=== PATIENT | female | born 1930 | race Caucasian/White ===

== ENCOUNTER 2020-12-28 11:15 | Emergency (ER) | payer MEDICARE ==
[~2020-12-28] VITALS: Ht 152.4 cm; Wt 80.2 kg
--- NOTE | ~2020-12-28 | EMS ---
[place] [address] EMS Patient Care Report Name: CHACHO LOPEZ Room: [facility]#: [id number] Admission: 12/28/20 Attend Phys: Discharge: Date of : [birth year] Report #: [id number] THIS REPORT FOR: //name// Report Transmitted: 12/28/2020 13:20 EMS Care Summary [facility] Incident [id number] @ 12/28/2020 10:22 Incident Location [address] [place] [address] Patient CHACHO LOPEZ Female, 89 Years 1930 Patient Address [address] [place] [address] Patient History Congestive Heart Failure (CHF),Dementia,Hypertension (HTN),Hyperlipidemia,Urinary Tract Infection (UTI),Type 2 Diabetes,Myocardial Infarction (GA), Patient Allergies No known allergies, Patient Medications Rosuvastatin, Acetaminophen, Namenda, Donepezil, Carvedilol, Losartan, Chief Complaint Chest pain Disposition Transported No Lights/Palms Dispatch Reason Unconscious/Fainting Transported To [facility] Narrative Dispatch: [facility] was dispatched for a female patient who was unconscious and had a complaint of chest pain prior to arrival. Med 1 copied tones [place] [address] EMS Patient Care Report Name: CHACHO LOPEZ Room: [facility]#: [id number] Admission: 12/28/20 Attend Phys: Discharge: Date of : [birth year] Report #: [id number] Chief Complaint: Med 1 arrived on scene to find the patient lying supine in her bed. Patient is alert and does not appear to be in any distress or discomfort. Patient states she has chest pain that radiates down her left leg. 12 lead EKG was performed showing sinus bradycardia with a borderline first degree heart block. History of present illness/LYDIA: Patient was found unconscious by MI staff. Staff called 911 and the patient began to regain consciousness prior to EMS arrival. NH staff states the patient was reporting chest pain prior to going unconscious. Assessment: Airway: Clear, patent, and self maintained. Breathing: Clear, and equal bilaterally. Non labored. Circulation: Skin is pink, warm, and dry. Strong radial pulses. Disability: A&OX2, GCS 15. Exposures: No life threats were found. See "assessments" tab for further. Reason for ambulance: Patient is experiencing chest pain and was found unconscious by MI staff. Requesting EMS treatment and transport to [facility] Treatments: ALS assessment. 12 lead EKG showing sinus bradycardia with borderline first degree heart block. 324mg ASA. 20G IV LAC. Vitals monitored throughout transport. Summary: With the assistance of EMS, the patient was placed onto the cot, secured in place, and placed into the ambulance for transport. The patient was placed onto the monitor and an IV was established. The patient was given 324mg ASA oral. Med 1 went en route non emergent to [facility]. The patient's overall condition improved throughout transport, the patient states she did not have chest pain only left leg pain. Radio report was given with no further questions or orders received. Med 1 arrived at destination and the patient was taken to room 4 in the ED where she was sheet transferred onto the bed. Report was given and signatures and paperwork were received. Med 1 returned back in service. Initial Vitals @10:46P: 58,BP: 128/63, @11:05P: 55,BP: 126/72, @10:30P: 59,BP: 148/82,GCS: 15,Temp: 98.3F,Glucose: 281,SpO2: 97, @10:38BP: 130/70,GCS: 15,SpO2: 100, @11:13P: 57,BP: 127/61,SpO2: 98, Assessments @10:58MENTAL:Confused,Person Oriented,Event Oriented,SKIN:HEENT:Head/Face: [place] [address] EMS Patient Care Report Name: CHACHO LOPEZ Room: [facility]#: [id number] Admission: 12/28/20 Attend Phys: Discharge: Date of : [birth year] Report #: [id number] Other,LUNG SOUNDS:ABDOMEN:PELVIS//GI:EXTREMITIES:Left Leg: Other,Capillary Refill: Right Upper: < 2 Sec,PULSE:Radial: 2+ Normal,NEURO:@11:01MENTAL:Confused,Person Oriented,Event Oriented,SKIN:HEENT:LUNG SOUNDS:ABDOMEN:PELVIS//GI:EXTREMITIES:Left Leg: Other,Capillary Refill: Right Upper: < 2 Sec,PULSE:Radial: 2+ Normal,NEURO: Impression Chest Pain / Discomfort Procedures @10:28ALS AssessmentResponse: UnchangedSucceeded@10:35[place] 0cc (20 ga) Site: Antecubital-LeftResponse: UnchangedSucceeded@10:36Aspirin - 324 Milligrams (mg) - OralResponse: Improved Timeline 10:20,Call Received 10:22,Dispatched 10:22,En Route 10:22,On Scene 10:24,At Patient 10:28,ALS Assessment,Response: UnchangedSucceeded, 10:30,BP: 148/82 M,PULSE: 59,RR: R,SPO2: 97 Ox,ETCO2: ,B,PAIN: ,GCS: 15, 10:35,[place] 0cc 20 ga Site: Antecubital-Left,Response: UnchangedSucceeded, 10:36,Aspirin - 324 Milligrams (mg) - Oral,Response: Improved 10:38,BP: 130/70 M,PULSE: ,RR: R,SPO2: 100 Ox,ETCO2: ,BG: ,PAIN: ,GCS: 15, 10:41,Depart Scene 10:46,BP: 128/63 M,PULSE: 58,RR: R,SPO2: Ox,ETCO2: ,BG: ,PAIN: ,GCS: , 11:05,BP: 126/72 M,PULSE: 55,RR: R,SPO2: Ox,ETCO2: ,BG: ,PAIN: ,GCS: , 11:13,BP: 127/61 M,PULSE: 57,RR: R,SPO2: 98 Ox,ETCO2: ,BG: ,PAIN: ,GCS: , 11:13,At Destination 12:09,Call Closed Disclaimer v1.1 Copyright 2020 [employer] This EMS Care Summary contains data elements from the applicable legal record (which may be displayed differently). It is designed to provide pertinent information for the following purposes: continuity of care, clinical quality, and state data reporting. The complete legal record is available to ED staff and administrators of the receiving hospital in [facility]'s Patient Tracker. All data is provided "as is."
[2020-12-28] MEDS ORDERED: ARICEPT10 M1 PO (11:18)
[2020-12-28] MEDS ORDERED: CARVEDILOL25 MG PO (11:18)
[2020-12-28] MEDS ORDERED: IMDUR 60 MG TAB60 M1 PO (11:19)
[2020-12-28] MEDS ORDERED: CALMOSEPTINE O3.5 GM TOP (11:19)
[2020-12-28] MEDS ORDERED: COZAAR100 MG PO (11:19)
[2020-12-28] MEDS ORDERED: BYDUREON B2 MG/0.85 SUBQ (11:19)
[2020-12-28] MEDS ORDERED: NAMENDA 10 MG T10 MG PO (11:20)
[2020-12-28] MEDS ORDERED: ROSUVASTATIN CA20 MG PO (11:20)
[2020-12-28] MEDS ORDERED: [UNRECOGNIZED DRUG - OTHER] IM (11:21)
[2020-12-28] MEDS ORDERED: LEVEMIR FL100 UNIT/2 SUBQ (11:21)
[2020-12-28] MEDS ORDERED: NYSTATIN 100,0015 G1 TOP (11:22)
[2020-12-28] MEDS ORDERED: ARTHRITIS PAIN650 M3 PO (11:22)
[2020-12-28 11:36] LABS: URINE BILIRUBIN NEGATIVE (Negative); URINE BLOOD NEGATIVE (Negative); URINE CLARITY CLEAR; URINE COLOR YELLOW; URINE GLUCOSE-RANDOM NEGATIVE (Negative); URINE KETONES NEGATIVE (Negative); URINE LEUKOCYTES NEGATIVE (Negative); URINE NITRITE NEGATIVE (Negative); URINE PROTEIN NEGATIVE (Negative); URINE SPECIFIC GRAVITY 1.015 (1.005-1.030); URINE UROBILINOGEN 0.2 E.U./dl (0.2-1.0)
[2020-12-28 11:52] LABS: ABSOLUTE BASOPHILS 0.1 thou/uL (0.0-0.2); ABSOLUTE EOSINOPHILS 0.2 thou/uL (0.0-0.7); ABSOLUTE LYMPHOCYTES 3.5 thou/uL (0.8-5.3); ABSOLUTE MONOCYTES 0.7 thou/uL (0.0-1.2); ABSOLUTE NEUTROPHILS 4.3 thou/uL (1.6-8.1); BASOPHILS 0.9 %; EOSINOPHILS 2.5 %; HEMATOCRIT 39.7 % (37.0-47.0); HEMOGLOBIN 12.9 gm/dL (12.0-15.0); LYMPHOCYTES 39.5 %; MCH 28.6 pg (26.0-34.0); MCHC 32.5 g/dL (28.0-37.0); MCV 87.9 fL (80.0-100.0); MONOCYTES 7.6 %; MPV 8.6 fl. (7.2-11.1); NUCLEATED RBCS 0 /100WBC; PLATELET COUNT* 225 thou/uL (150-400); POLYS 49.5 %; RBC 4.52 mil/uL (4.20-5.00); RDW-CV 14.8 % (10.5-14.5); WBC 8.8 thou/uL (4.0-11.0)
[2020-12-28 12:02] LABS: CALCIUM 9.1 mg/dL (8.5-10.1); CREATININE 1.3 mg/dL (0.6-1.3); POTASSIUM 4.5 mmol/L (3.5-5.1)
[2020-12-28 12:06] LABS: ALBUMIN 3.4 g/dL (3.4-5.0); TOTAL BILIRUBIN 0.7 mg/dL (<0.1-1.0); TOTAL PROTEIN 6.8 g/dL (6.4-8.2)
[2020-12-28 14:44] VITALS: BP 137/47
--- NOTE | 2020-12-29 12:27 | EKG ---
[place] [address] ELECTROCARDIOGRAM REPORT Name: CHACHO LOPEZ Room: [facility]#: [id number] Admission: 12/28/20 Attend Phys: Discharge: 12/28/20 Date of : [birth year] Date of Service: 12/28/20 1120 Report #: [id number] THIS REPORT FOR: //name// [facility] ED Test Date: 2020-12-28 Test Time: 11:20:20 Pat Name: CHACHO LOPEZ Department: Room: Gender: F [employer] Estate Paralegal: MISTI : 1930 Requested By: Miguel Montelongo Order Number: [id number] MD: Vini Feldman Measurements Intervals [place] Rate: 56 P: -15 MT: 201 QRS: -29 QRSD: 124 T: 104 QT: 485 QTc: 469 Interpretive Statements Sinus rhythm Nonspecific intraventricular conduction delay Inferior infarct, old Anterolateral infarct, age indeterminate No previous ECG available for comparison [id number] Electronically Signed On 12-29-2020 12:27:11 CDT by Vini Feldman [email or web address] <ELECTRONICALLY SIGNED> By: Carlos Enrique Feldman MD, [facility] 12/29/20 1227 1120 1120 Carlos Enrique Feldman MD, [facility] /EPI
== END 2020-12-28 14:46 | disposition home or self-care (01) ==
LOC: M.ERS 11:15
PROVIDERS: Emergency Medicine
DX: F03.90 Unspecified dementia, unspecified severity, without behavioral disturbance, psychotic disturbance, mood disturbance, and anxiety (principal); R07.89 Other chest pain